=== PATIENT | female | born 1950 | race Two or more races ===

== ENCOUNTER 2018-12-27 07:30 | Inpatient (IN) | payer OTHER ==
[~2018-12-27] VITALS: Ht 160 cm; Wt 59.0 kg
[2019-01-10] MEDS ORDERED: ATORVASTATIN CA40 MG PO (09:55)
[2019-01-10] MEDS ORDERED: ENALAPRIL MALEA10 MG PO (09:55)
[2019-01-10] MEDS ORDERED: GLIPIZIDE5 MG PO (09:56)
[2019-01-11] MEDS ORDERED: PERCOCET 5-3251 EACH PO (15:03)
[2019-01-11] MEDS ORDERED: ELIQUIS2.5 MG PO (15:03)
[2019-01-11] MEDS ORDERED: DUI500 PO (15:03)
[2019-01-12] MEDS ORDERED: PERCOCET 5-3251 EACH PO (07:24)
[2019-01-12] MEDS ORDERED: ELIQUIS2.5 MG PO (07:24)
[2019-01-12] MEDS ORDERED: DUI500 PO (07:24)
== END 2019-01-12 15:32 | DRG 470 ==
LOC: SURG 01-09 06:05 → O/R 01-09 06:05 → SURH 01-09 07:00 → SURG 01-09 13:15
PROVIDERS: ADMIT Orthopaedic Surgery
PROC: 0MTM0ZZ Resection of Left Hip Bursa and Ligament, Open Approach (ICD-10-PCS; 2019-01-09)
PROC: 0SRB0JZ Replacement of Left Hip Joint with Synthetic Substitute, Open Approach (ICD-10-PCS; principal; 2019-01-09 07:00)
PROC: 30233N1 Transfusion of Nonautologous Red Blood Cells into Peripheral Vein, Percutaneous Approach (ICD-10-PCS; 2019-01-10)
DX: M16.12 Unilateral primary osteoarthritis, left hip (principal); D62 Acute posthemorrhagic anemia; M81.0 Age-related osteoporosis without current pathological fracture; E11.9 Type 2 diabetes mellitus without complications; I10 Essential (primary) hypertension

== ENCOUNTER 2019-01-03 12:57 | Outpatient (CLI) | payer OTHER | END 2019-01-03 13:22 | disposition home or self-care (01) | LOC: LAB 12:57 | DX: E11.00 Type 2 diabetes mellitus with hyperosmolarity without nonketotic hyperglycemic-hyperosmolar coma (NKHHC) (principal) ==